=== PATIENT | female | born 2000 | race Caucasian/White ===

== ENCOUNTER 2021-11-23 20:29 | Inpatient (IN) ==
[2021-11-23] MEDS ORDERED: miSOPROStoL 200 MCG TABLET RECTAL PRN (23:07)
[2021-11-23] MEDS ORDERED: CARBOPROST TROMETHAMINE 250 MCG/ML AMP IM PRN (23:07)
[2021-11-23] MEDS ORDERED: MEPERIDINE 50 MG/1 ML VIAL IV PRN (23:07)
[2021-11-23] MEDS ORDERED: OXYTOCIN/LR 20 UNIT/1,000 ML BAG IV ONE (23:07)
[2021-11-23] MEDS ORDERED: ONDANSETRON 4 MG/2 ML VIAL IV PRN (23:07)
[2021-11-23] MEDS ORDERED: BUTORPHANOL 2 MG/ML VIAL IV PRN (23:07)
[2021-11-23] MEDS ORDERED: TRANEXAMIC ACID 1,000 MG in SODIUM CHLORIDE 0.9% 100 ML IV PRN (23:07)
[2021-11-23 23:30] LABS: Basophils % 0.3 % (0.0-0.8); Eosinophils # 0.1 10*3/uL (0.0-0.87); Eosinophils % 0.9 % (0.00-10.9); Hematocrit 28.6 VOL% (35.7-47.0); Hemoglobin 9.6 GM/DL (12.0-16.0); Immature Granulocytes % 1.4 %; Immature Granulocytes Absolute 0.16 #; Lymphocytes # 2.6 10*3/uL (1.4-4.0); Mean Corpuscular HGB Conc 33.6 GM/DL (32-36); Mean Corpuscular Volume 86.4 FL (87-102); Mean Platelet Volume 10.2 FL (9.6-12.0); Monocytes # 0.7 10*3/uL (0.11-0.8); Monocytes % 6.2 % (1.7-12.7); Neutrophils % 69.2 % (38.7-73.9); Platelet Count 279 T/CUMM (130-400); Red Blood Count 3.31 MC/CUMM (3.8-5.5); Red Cell Distribution Width 12.9 % (9.3-17.3); White Blood Count 11.7 T/CUMM (4-12)
[2021-11-23 23:49] LABS: INR 0.9; PT Patient Result 9.8 SECS (10.5-12.0); Partial Thromboplastin Time 25.4 SECS (23.8-32.1)
[2021-11-23 23:57] LABS: Alanine Aminotransferase 14 U/L (13-56); Albumin 2.3 G/DL (3.4-5.0); Alkaline Phosphatase 136 U/L (45-117); Aspartate Amino Transferase 6 U/L (0-37); Bilirubin,Total < 0.39 MG/DL (0.20-1.00); Blood Urea Nitrogen 11 MG/DL (7-18); Calcium 8.5 MG/DL (8.5-10.1); Carbon Dioxide 24 MMOL/L (21-32); Chloride 108 MMOL/L (98-107); Estimated Glom Filtration Rate 148 ML/MIN; Glucose 91 MG/DL (74-106); Osmolality,Calculated 275.5 MOS/KG (273-304); Potassium 4.1 MMOL/L (3.5-5.1); Sodium 139 MMOL/L (136-145); Total Protein 6.1 G/DL (6.4-8.2); Uric Acid 6.6 MG/DL (2.6-6.0)
[2021-11-24] MEDS: ZALEPLON 5 MG CAPSULE PO SCH ×2 (00:33→21:29)
[2021-11-24 04:38] LABS: Bacteria,Urine Occasional /HPF (Few); Bilirubin,Urine Negative (Negative); Blood, Urine Negative (Negative); Glucose,Urine (UA) Negative (Negative); Ketones,Urine Negative (Negative); Mucus,Urine Occasional /LPF (Occasional); Nitrite,Urine Negative (Negative); Protein,Urine Negative (Negative); RBC,Urine 2 /HPF (0-4); Squamous Epithelial Cell,Urine Occasional /HPF (0-10); Urine Appearance Clear (Clear); Urine Color Yellow (Yellow); Urine Specific Gravity 1.025 (1.001-1.035); Urine Urobilinogen 0.2 eU/dL (<2.0)
[2021-11-24 05:47] LABS: Protein/Creatinine Ratio,Urine 0.4 RATIO
[2021-11-24] MEDS: LABETALOL 100 MG TABLET PO SCH ×3 (07:42→21:29)
[2021-11-24] MEDS: amLODIPine 5 MG TABLET PO SCH ×2 (08:11→09:46)
[2021-11-24] MEDS: ACETAMINOPHEN 500 MG TABLET PO PRN (09:52)
[2021-11-24] MEDS: LACTATED RINGERS 1,000 ML IV SCH ×2 (17:03→17:04)
[2021-11-25] MEDS: ACETAMINOPHEN 500 MG TABLET PO PRN (03:38)
[2021-11-25] MEDS ORDERED: OXYTOCIN/LR 20 UNIT/1,000 ML BAG IV SCH (04:00)
[2021-11-25] MEDS ORDERED: AMPICILLIN INJ 2,000 MG in SODIUM CHLORIDE 0.9% 100 ML IV ONE (04:00)
[2021-11-25] MEDS: LACTATED RINGERS 1,000 ML IV SCH ×2 (04:20→18:20)
[2021-11-25] MEDS: LABETALOL 100 MG TABLET PO SCH ×3 (05:43→21:54)
[2021-11-25] MEDS ORDERED: AMPICILLIN INJ 1,000 MG in SODIUM CHLORIDE 0.9% 100 ML IV SCH (08:00)
[2021-11-25 08:04] LABS: Basophils % 0.2 % (0.0-0.8); Eosinophils # 0.1 10*3/uL (0.0-0.87); Eosinophils % 0.9 % (0.00-10.9); Hematocrit 30.2 VOL% (35.7-47.0); Hemoglobin 9.8 GM/DL (12.0-16.0); Immature Granulocytes % 0.9 %; Lymphocytes # 2.7 10*3/uL (1.4-4.0); Mean Corpuscular HGB Conc 32.5 GM/DL (32-36); Mean Platelet Volume 10.3 FL (9.6-12.0); Monocytes # 0.6 10*3/uL (0.11-0.8); Monocytes % 5.2 % (1.7-12.7); Neutrophils % 69.8 % (38.7-73.9); Platelet Count 251 T/CUMM (130-400); Red Blood Count 3.43 MC/CUMM (3.8-5.5); Red Cell Distribution Width 12.9 % (9.3-17.3); White Blood Count 11.6 T/CUMM (4-12)
[2021-11-25] MEDS: amLODIPine 5 MG TABLET PO SCH (08:49)
[2021-11-25] MEDS ORDERED: BUPIVACAINE MPF 0.5% 30 ML VIAL ONE (10:02)
[2021-11-25] MEDS ORDERED: KETOROLAC 30 MG/1 ML VIAL ONE (10:02)
[2021-11-25] MEDS ORDERED: PHENYLEPHRINE 1 MG/10 ML SYRINGE IV ONE (10:02)
[2021-11-25] MEDS ORDERED: ONDANSETRON 4 MG/2 ML VIAL ONE (10:02)
[2021-11-25] MEDS ORDERED: DEXAMETHASONE 4 MG/1 ML VIAL ONE (10:02)
[2021-11-25] MEDS ORDERED: buprenorphine HCL 0.3 MG/ML VIAL ONE (10:02)
[2021-11-25] MEDS ORDERED: SODIUM CHLORIDE 0.9% 0 ML IV ONE (11:00)
[2021-11-25] MEDS ORDERED: ceFAZolin 2,000 MG/50 ML DUPLEX IV ONE (11:00)
[2021-11-25] MEDS ORDERED: miSOPROStoL 200 MCG TABLET ONE (11:00)
[2021-11-25] MEDS ORDERED: OXYTOCIN/LR 20 UNIT/1,000 ML BAG IV ONE ×2 (11:00→15:23)
[2021-11-25] MEDS ORDERED: TRANEXAMIC ACID 1,000 MG/10 ML VIAL ONE (11:00)
[2021-11-25] MEDS ORDERED: CITRIC ACID/SODIUM CITRATE 30 ML UDCUP PO ONE (11:00)
[2021-11-25] MEDS ORDERED: FAMOTIDINE 20 MG/2 ML VIAL IV ONE (11:00)
[2021-11-25] MEDS ORDERED: OXYTOCIN 10 UNIT/ML VIAL ONE (12:11)
[2021-11-25] MEDS ORDERED: LACTATED RINGERS 1,000 ML IV ONE (12:14)
[2021-11-25] MEDS ORDERED: ACETAMINOPHEN INJ 1,000 MG/100 ML VIAL IV ONE (12:14)
[2021-11-25] MEDS ORDERED: MIDAZOLAM 2 MG/2 ML VIAL ONE (12:19)
[2021-11-25 12:34] LABS: Cord Venous Blood HCO3 24.3 MMOL/L; Cord Venous Blood PCO2 43.1 MMHG; Cord Venous Blood PO2 25.1 MMHG
[2021-11-25 12:45] LABS: Bilirubin,Urine Negative (Negative); Blood, Urine Negative (Negative); Glucose,Urine (UA) Negative (Negative); Ketones,Urine Negative (Negative); Mucus,Urine Occasional /LPF (Occasional); Nitrite,Urine Negative (Negative); Protein,Urine Negative (Negative); RBC,Urine <1 /HPF (0-4); Squamous Epithelial Cell,Urine Occasional /HPF (0-10); Urine Appearance Clear (Clear); Urine Color Straw (Yellow); Urine Urobilinogen 0.2 eU/dL (<2.0)
[2021-11-25] MEDS ORDERED: ACETAMINOPHEN 325 MG TABLET PO PRN (15:23)
[2021-11-25] MEDS ORDERED: HYDROCORTISONE 2.5% RECTAL CREAM 30 GM TUBE TOP PRN (15:23)
[2021-11-25] MEDS ORDERED: DIPH/TET/ACEL PERT BOOSTER VACCINE 0.5 ML VIAL IM ONE (15:23)
[2021-11-25] MEDS ORDERED: MEASLES/MUMPS/RUBELLA VACCINE 0.5 ML VIAL SUBCUT ONE (15:23)
[2021-11-25] MEDS ORDERED: oxyCODONE/ACETAMINOPHEN 5-325 MG TABLET PO PRN (15:23)
[2021-11-25] MEDS ORDERED: BISACODYL 10 MG SUPP RECTAL PRN (15:23)
[2021-11-25] MEDS ORDERED: ONDANSETRON 4 MG/2 ML VIAL IV PRN (15:23)
[2021-11-25] MEDS ORDERED: IBUPROFEN 800 MG TABLET PO PRN (15:23)
[2021-11-25] MEDS ORDERED: LANOLIN 50% CREAM 0.3 OZ TUBE TOP PRN (15:23)
[2021-11-25] MEDS ORDERED: WITCH HAZEL PADS 100/JAR TOP PRN (15:23)
[2021-11-25] MEDS ORDERED: BENZOCAINE 20%/MENTHOL 0.5% SPRAY 56 GM CAN TOP PRN (15:23)
[2021-11-25] MEDS ORDERED: LABETALOL 100 MG TABLET PO SCH (15:23)
[2021-11-25] MEDS ORDERED: RHO(D) IMMUNE GLOBULIN 300 MCG SYRINGE IM ONE (15:23)
[2021-11-25] MEDS: oxyCODONE/ACETAMINOPHEN 5-325 MG TABLET PO PRN (17:08)
[2021-11-25] MEDS: KETOROLAC 30 MG/1 ML VIAL IV SCH (18:17)
[2021-11-25] MEDS: ACETAMINOPHEN 500 MG TABLET PO SCH (18:38)
[2021-11-25] MEDS: DOCUSATE SODIUM 100 MG CAPSULE PO SCH (21:55)
[2021-11-26] MEDS: KETOROLAC 30 MG/1 ML VIAL IV SCH ×2 (00:05→06:20)
[2021-11-26] MEDS: ZALEPLON 5 MG CAPSULE PO SCH ×2 (01:04→21:15)
[2021-11-26] MEDS: ACETAMINOPHEN 500 MG TABLET PO SCH (01:06)
[2021-11-26] MEDS: oxyCODONE/ACETAMINOPHEN 5-325 MG TABLET PO PRN ×3 (03:38→16:23)
[2021-11-26] MEDS: LABETALOL 100 MG TABLET PO SCH ×3 (06:13→22:02)
[2021-11-26 06:20] LABS: Basophils % 0.2 % (0.0-0.8); Eosinophils % 0.2 % (0.00-10.9); Hemoglobin 8.4 GM/DL (12.0-16.0); Immature Granulocytes % 0.5 %; Lymphocytes # 3.4 10*3/uL (1.4-4.0); Lymphocytes % 18.2 % (21.3-54.2); Mean Corpuscular HGB Conc 33.6 GM/DL (32-36); Mean Corpuscular Volume 86.5 FL (87-102); Mean Platelet Volume 10.7 FL (9.6-12.0); Monocytes # 1.2 10*3/uL (0.11-0.8); Monocytes % 6.3 % (1.7-12.7); Neutrophils % 74.6 % (38.7-73.9); Platelet Count 248 T/CUMM (130-400); Red Blood Count 2.89 MC/CUMM (3.8-5.5); Red Cell Distribution Width 12.8 % (9.3-17.3); White Blood Count 18.4 T/CUMM (4-12)
[2021-11-26] MEDS: DOCUSATE SODIUM 100 MG CAPSULE PO SCH ×2 (09:00→21:15)
[2021-11-26] MEDS ORDERED: amLODIPine 5 MG TABLET PO SCH (09:00)
[2021-11-26] MEDS: amLODIPine 5 MG TABLET PO SCH (12:26)
[2021-11-26] MEDS ORDERED: FERROUS SULFATE 325 MG TABLET PO SCH (21:00)
[2021-11-27] MEDS: LABETALOL 100 MG TABLET PO SCH (06:05)
[2021-11-27] MEDS: amLODIPine 5 MG TABLET PO SCH (08:09)
[2021-11-27] MEDS: DOCUSATE SODIUM 100 MG CAPSULE PO SCH (08:09)
[2021-11-27 08:20] VITALS: BP 130/84
[2021-11-27] MEDS ORDERED: DIPH/TET/ACEL PERT BOOSTER VACCINE 0.5 ML VIAL IM ONE (10:16)
== END 2021-11-27 11:05 | disposition home or self-care (01) | DRG 788 ==
LOC: N.LD 20:29 → N.OB 11-25 15:16
PROVIDERS: ADMIT Specialist; ATTEND Specialist
PROC: LDCSECT (ICD-10-PCS; 2021-11-25 12:00)